=== PATIENT | male | born 1990 | race African-American/Black ===

== ENCOUNTER 2024-01-10 17:09 | Emergency (ER) | payer SELFPAY ==
[2024-01-10 18:07] LABS: BASOPHILS PERCENT AUTO 0.3 % (0.0-1.0); EOSINOPHILS PERCENT AUTO 0.4 % (0.0-6.0); HEMATOCRIT 44.9 % (42.0-52.0); HEMOGLOBIN 16.6 gm/dl (14.0-18.0); IMMATURE GRAN ABSOLUTE AUTO 0.02 K/mm3 (0.00-0.05); IMMATURE GRAN PERCENT AUTO 0.3 % (0.0-0.4); LYMPHOCYTES ABSOLUTE AUTO 1.1 K/mm3 (1.0-4.8); LYMPHOCYTES PERCENT AUTO 16.6 % (24.0-44.0); MEAN CORPUSCULAR VOLUME 83.9 fl (83.0-99.0); MEAN PLATELET VOLUME 9.6 fl (9.4-12.4); MONOCYTES ABSOLUTE AUTO 0.7 K/mm3 (0.0-0.8); MONOCYTES PERCENT AUTO 10.7 % (0.0-8.0); NEUTROPHILS ABSOLUTE AUTO 4.9 K/mm3 (1.8-7.7); NEUTROPHILS PERCENT AUTO 71.7 % (41.0-71.0); PLATELET COUNT,PLT 219 K/mm3 (150-400); RED BLOOD CELL COUNT 5.35 M/mm3 (4.52-5.90); WHITE BLOOD CELL COUNT,WBC 6.81 K/mm3 (3.9-11.3)
[2024-01-10 18:32] LABS: A/G RATIO 1.1 (1-2); BILIRUBIN TOTAL 1.2 mg/dL (0.2-1.0); BUN/CREATININE RATIO 7.5 (14-18); C-REACTIVE PROTEIN 3.41 mg/dL (<0.30); CALCIUM 9.4 mg/dL (8.5-10.1); CREATININE 1.2 mg/dL (0.7-1.3); EST CRCL DRUG DOSING (CG) 95.2 mL/min; POTASSIUM,K 3.3 mEq/L (3.5-5.1); PROTEIN TOTAL,TP 7.7 g/dl (6.4-8.2)
[2024-01-10 18:37] LABS: LACTIC ACID 1.3 mmol/L (0.4-2.0)
[2024-01-10] MEDS ORDERED: Naloxone 0.4 MG/ML SDV IVPUSH PRN (19:16)
[2024-01-10] MEDS: Lactated Ringers 1,000 ML IV ONE (19:19)
[2024-01-10] MEDS: fentaNYL 100 MCG/2 ML SDV IVPUSH ONE (19:22)
[2024-01-10 19:25] LABS: ANION GAP 17.3 (5-15)
[2024-01-10] MEDS: Iopamidol 612 MG/ML 100 ML Bottle IVPUSH ONE (19:30)
[2024-01-10] MEDS: Sodium Chloride 0.9% 10 ML Syringe FLUSH PRN (19:31)
[2024-01-10] MEDS: predniSONE 20 MG Tab PO ONE (20:40)
[2024-01-10] MEDS: Azithromycin 250 MG Tab PO STA (20:40)
== END 2024-01-10 21:00 | disposition home or self-care (01) ==
LOC: JD.ED 17:09
DX: K52.9 Noninfective gastroenteritis and colitis, unspecified (principal); Z79.899 Other long term (current) drug therapy; Z88.0 Allergy status to penicillin
CPT/HCPCS: 36415; 74177; 80053; 83605; 83690; 85025; 86140; 96361; 96374; 99285; A9270; J3010; J3490; J7120; J7512; Q9967; 99284